=== PATIENT | male | born 1955 | race Caucasian/White ===

== ENCOUNTER 2022-05-14 12:45 | Emergency (ER) | payer BC, MEDICARE ==
[2022-05-14] MEDS ORDERED: Ketorolac 60 MG/2 ML SDV IM ONE (13:57)
[2022-05-14] MEDS ORDERED: Orphenadrine 100 MG Tab.ER PO ONE (13:57)
== END 2022-05-14 15:45 | disposition home or self-care (01) ==
LOC: JD.ED 12:45
DX: M54.50 Low back pain, unspecified (principal); M62.830 Muscle spasm of back; K21.9 Gastro-esophageal reflux disease without esophagitis; Z79.899 Other long term (current) drug therapy
CPT/HCPCS: 72100; 72100-26; 96372; 99283; A9270-GY; J1885